=== PATIENT | female | born 1980 | race Caucasian/White ===

== ENCOUNTER 2020-07-13 11:29 | Outpatient (REF) | payer OTHER, SELFPAY | END 2020-07-13 11:30 | disposition home or self-care (01) | LOC: HO.SCI 11:29 | DX: Z13.89 Encounter for screening for other disorder (principal) ==

== ENCOUNTER 2020-07-21 15:31 | Outpatient (REF) | payer OTHER, SELFPAY ==
--- NOTE | 2020-07-21 15:31 | MR_ITS ---
EXAMINATION: MR BRAIN WITHOUT AND WITH CONTRAST CLINICAL INFORMATION: Epilepsy. COMPARISON: No relevant prior imaging. TECHNIQUE: Multiplanar MR imaging of the brain was performed without and with contrast. A total of 10 mL Gadavist was utilized for this examination. FINDINGS: There is a small focus of intrinsic T1 signal hyperintensity along the undersurface of the third ventricular floor best illustrated on sagittal image 12 of 24 series 3 with corresponding loss of signal on the fat-suppressed sequences. This finding therefore most likely represents a small lipoma. Otherwise there is no abnormal enhancement within the intracranial compartment on postcontrast images. No intracranial mass effect or midline shift. Lateral and third ventricles are proportionate to the subarachnoid spaces. No hydrocephalus. The cervicomedullary junction is normal. No acute bone marrow signal changes. Dedicated coronal oblique imaging through the temporal lobes reveal symmetric size, signal intensity, and morphological appearance of the hippocampal regions. No evidence of mesial temporal sclerosis. There are a few scattered nonspecific foci of T2 FLAIR signal hyperintensity within the periventricular white matter. No acute territorial infarct. Intracranial vascular flow voids are maintained. No mastoid middle ear effusion. No active paranasal sinus disease. Globes and orbits are symmetric. 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 Otherwise normal brain MRI.
== END 2020-07-21 15:32 | disposition home or self-care (01) ==
LOC: HO.MRI 15:31
PROVIDERS: Visit Provider Psychiatry & Neurology Neurology
DX: G40.909 Epilepsy, unspecified, not intractable, without status epilepticus (principal)
CPT/HCPCS: 70553

== ENCOUNTER 2025-09-26 12:19 | Emergency (ER) | payer OTHER, SELFPAY ==
[2025-09-26 12:25] VITALS: BP 169/75; PULSE 120; RESP 20; TEMP 35.5; O2SAT 96; BMI 41.0
--- NOTE | 2025-09-26 12:26 | ED.GENADULT ---
HPI - General Adult General Chief complaint: Upper Respiratory Symptoms Stated complaint: COVID LIKE SYMPTOMS Time Seen by Provider: 09/26/25 12:31 Source: patient Mode of arrival: ambulatory Limitations: no limitations History of Present Illness ED Provider: Alma Mejía PA-C HPI narrative: Patient is a 44 year old female presenting to the emergency department today with concerns for COVID-19 infection. Patient states that she works at [employer] and was just informed that 3 individuals at work have tested positive. Patient states that she took an / old home test that was positive but given the state of the test - she wanted confirmation. Patient states that if she is positive, she would like to be prescribed Paxlovid. Related Data Previous Rx's ?Medication ?Instructions ?Recorded nirmatrelvir 150 mg (10)-ritonavir See Rx Instructions PO .COMPLEX 09/26/25 100 mg (10) tablets in a dose pack #20 ea (Paxlovid) Allergies Allergy/AdvReac Type Severity Reaction Status Date / Time Sulfa (Sulfonamide Allergy Unknown Verified 09/26/25 12:30 Antibiotics) Review of Systems Constitutional: Constitutional: Reports as per HPI Eyes: Eyes: Reports as per HPI ENT: Reports as per HPI Cardiovascular: Cardiovascular: Reports as per HPI Respiratory: Respiratory: Reports as per HPI Gastrointestinal: Gastrointestinal: Reports as per HPI Genitourinary: Genitourinary: Reports as per HPI Musculoskeletal: Musculoskeletal: Reports as per HPI Integumentary/Breasts: Skin/Breast: Reports as per HPI Neurologic: Reports as per HPI Psychiatric: Psychiatric: Reports as per HPI Endocrine: Endocrine: Reports as per HPI Hematologic/Lymphatic: Hematologic/Lymphatic: Reports as per HPI Allergic/Immunologic: Allergic/Immunologic: Reports as per HPI [facility] Past Medical History Attestation statement: The following information was validated with the patient. Source: old records reviewed and nursing notes reviewed Social History Social History Advance Directives: No Advance Directives Information Provided: No Do you have a plan to hurt others: No Plan Physical Exam ED Vital Signs: Vital Signs - 24 hr 09/26/25 12:25 09/26/25 15:00 09/26/25 16:19 Temperature 95.9 F L 98.8 F 98.8 F Pulse Rate 120 H 118 H 118 H Respiratory Rate 20 18 18 Blood Pressure 169/75 H 129/84 129/84 Pulse Oximetry 96 97 97 Oxygen Delivery Method Room Air Room Air Room Air BMI result Body Mass Index 41.0 Const General: cooperative, alert and awake Orientation/consciousness: patient oriented x3 HENMT Other: Patient masked during all interactions Ears: hearing grossly normal bilaterally Mouth: no muffled voice Eyes General: appearance normal, both eyes and all related structures Periorbital: periorbital findings normal Resp Effort & Inspection: able to speak in complete sentences Neuro General: patient oriented x3, moves all extremities and CN's II-XI intact bilaterally Cognition (Neuro): normal cognition Extrem General: Yes full ROM Psych Appearance: grossly normal Mental Status: mental status grossly normal Attitude: cooperative Course Course Course Narrative: Rapid medical examination performed in triage by Alma Mejía PA-C: Patient is a 44 year old female presenting to the emergency department with concern for COVID-19 exposure. Patient states she was exposed to COVID-19 at [facility] and would now like to be tested and if positive, would like to be prescribed Paxlovid. Detailed physical exam and review of systems are deferred to the supervisor dental laboratory. Swabs ordered. Patient placed back in the waiting room pending room availability and results. Medical Decision Making Medical Decision Making MDM Narrative: Patient is a 44 year old female presenting to the emergency department today with concerns for COVID-19 infection. Patient's physical exam was as noted in the physical exam portion of this note. Patient's COVID-19 testing was positive. Patient's Influenza and RSV testing was negative. I explained all test results to the patient. I answered all questions asked by the patient. I explained to the patient that Paxlovid is no longer routinely covered by health insurance. Patient verbalized understanding and stated that she would like it prescribed anyway. Paxlovid prescribed to pharmacy of patient's choice. I explained to the patient that the CDC now recommends returning to work with COVID when fever free and recommends wearing a mask around others for 5 days. I stressed the importance of the patient taking her medication as directed (either prescribed or as the over the counter packaging recommends). I stressed the importance of the patient following up with her primary care provider. I stressed the importance of the patient returning to the emergency department immediately if she were to develop any dizziness, shortness of breath, difficulty breathing, chest pain, blurry vision, loss of vision, nausea, vomiting, abdominal pain, fever, chills, back pain, or any other complaints. Patient verbalized agreement and understanding with this treatment plan and discharge. Differential Diagnosis Differential Diagnoses: The differential diagnosis associated with the presentation includes COVID-19 exposure COVID-19 Admission/Observation Consideration of admission/observation: Escalation of care including admission/observation considered Patient would have been admitted to the hospital had her work up had any findings where hospital admission was appropriate and her clinical presentation warranted hospital admission. Lab Data [facility] Lab Attestation statement: I reviewed the patient's lab results. My interpretation of these results are in the [facility] Rationale portion of this note. Labs: Lab Results 09/26/25 Range/Units 14:59 Influenza Type A (PCR) NEGATIVE (Negative) Influenza Type B (PCR) NEGATIVE (Negative) RSV RNA Qual (PCR) NEGATIVE (Negative) SARS-CoV-2 RNA (RT-PCR) POSITIVE A (Negative) Prescription Management I considered prescription management with: Antiviral (patient prescribed paxlovid per her request.) Discharge Plan Discharge Clinical Impression: COVID-19 Patient Disposition: Home, Self-Care Instructions: COVID-19 (Coronavirus Disease 2019) (ED) Additional Instructions: Your COVID-19 testing is positive. IF you are prescribed home medications and/or you are taking over the counter medications at home - it is very important you continue to do so as prescribed / directed unless told otherwise by a healthcare provider. Follow up with your primary care provider. Do your best to stay well hydrated and rest. Return to the emergency department immediately if your symptoms worsen or if you develop any numbness, tingling, dizziness, shortness of breath, difficulty breathing, chest pain, blurry vision, loss of vision, nausea, vomiting, abdominal pain, fever, chills, back pain, or any other complaints. If you do not have a primary care provider - call any of the below numbers to establish and follow up with a primary care provider. [facility] Primary Care ([place]) [phone] [place] [address], [address] [facility] Primary Care ([address] [place]) [phone] [place] [address], [address] [facility], [address] [facility] Primary Care ([address] [place]) [phone] [place] [address], [address] [facility], [address] [facility] Primary Care ([place]) [phone] [place] [address], [address] [place] [facility], [address] [facility] Family Medicine [phone] [place] [address], [address] Please see the information below about our Patient Portal. If you are not yet enrolled in the [facility] Patient Portal, you will receive an enrollment email invitation following your visit to any [facility] care setting. You may also self-enroll in the Patient Portal by visiting our website: [email or web address] The following information is required to access the Patient Portal: - Your [facility] Medical Record Number - Your personal home email address (must match what is in your electronic medical record, Registration staff can assist with this) - Name - Date of Capabilities of the Patient Portal: - Message some providers - View upcoming appointments - Access your health summary, medical history, and visit history - View current conditions and allergies - View procedure and lab results - View your medications, including guidelines, side effects, and precautions - Complete pre-appointment questionnaires requested by your provider - Ready summary reports of your office visits and procedures To access the Patient Portal Mobile Bridget, follow these directions: - Search HomeRun in the Bridget Store or Google [employer] Store - Download the Bridget - Search for [facility] - Enter your login/password Prescriptions: New Paxlovid 150 mg (10)- 100 mg (10) tablets,dose pack See Rx Instructions .ROUTE .COMPLEX Qty: 20 0RF Rx Instructions: take ONE 150 mg tablet of nirmatrelvir with ONE 100 mg tablet of ritonavir twice daily for 5 days Stand Alone Forms: Work/School Release Interventions: ED Discharge Assessment Last Done: 09/26/25 16:19 Discharge Date/Time: 09/26/25 16:19 Print Language: Slovak
[2025-09-26 15:00] VITALS: BP 129/84; PULSE 118; RESP 18; TEMP 37.1; O2SAT 97
--- NOTE | 2025-09-26 15:17 | MHC.EDTECH ---
Lin Guadarrama notified of pt [facility]
[2025-09-26 15:49] LABS: Resp Syncy Virus RNA Qual PCR NEGATIVE (Negative); SARS COV2 PCR INHOUSE POSITIVE (Negative)
--- OUTSIDE RECORDS SUMMARY | 2025-09-26 16:12 | XMS_ITS | Encounter Summary ---
Author Organization [facility] Address [address] [place] [address] Care Team Providers Care Geophysical Party Chief Name Role Phone Anjel Harding MD Primary Care Provider Reason for Visit * Reason Onset Date Comments Med Refill 08/14/2024 Encounter Details Date Type Department Care Team (Late st Contact Info) Description 08/14/2024 Nurse Triage Adult Medicine [address] [phone] Anjel Harding MD [address] [place] [id number] Social History Tobacco Use Types Packs/Day Years Used Date Smoking Tobacco: Never Smokeless Tobacco: Never Alcohol Use Standard Drinks/Week Comments No 0 (1 standard drink = 0.6 oz pur e alcohol) Comments Unknown Sex and Gender Information Value Date Recorded Sex Assigned at Not on file Legal Sex Female 11:04 AM EDT Gender Identity Not on file Sexual Orientation Not on file documented as of this encounter Progress Notes * Debby Prieto RN - 09/02/2024 12:34 PM EST Spoke with pt. She is all set with her letter but states her pharmacy informed her she will need a rx for her gabapentin and fenofibrate * Debby Prieto RN - 09/01/2024 1:14 PM EST Called number listed no answer, left message to call the office at [phone] * Diana Barrett RN - 08/21/2024 12:20 PM EST Call to pt. Left message for pt to call triage Last PE was in november documented in this encounter Plan of Treatment Upcoming Encounters Date Type Department Care Team (Late st Contact Info) Description 10/21/2025 9:00 AM EST Appointment Radiology Department - [address] [phone] documented as of this encounter Visit Diagnoses Not on filedocumented in this encounter Care Teams Geophysical Party Chief Relationship Specialty Start Date End Date Anjel Harding MD [address] [place] [address] PCP - General 05/04/24 documented as of this encounter
--- OUTSIDE RECORDS SUMMARY | 2025-09-26 16:12 | XMS_ITS | Clinical Summary ---
Author Organization Patient Business Ser [facility] Address [address] [place] [address] Care Team Providers Care Bakery Helper Name Role Phone Anjel Harding MD Primary Care Provider Allergies Active Allergy Reactions Criticality Noted Date Comments Adhesive Tape-Silicones Rash 11/26/2024 Cinnamon Analogues Itching 04/27/2024 Clindamycin Rash 12/14/2019 Sulfa (Sulfonamide Antibiotics) Anaphylaxis High Medications ASCORBIC ACID, VITAMIN C, ORAL Take by mouth. Active coenzyme Q-10 10 mg capsule Take 40 capsules (400 mg total) by mouth. Active ginkgo biloba leaf extract 60 mg capsule Take 60 mg by mouth. Active UNABLE TO FIND Vitamin d OTC A ctive vit no.124/iron/fo lic ( VITAMIN ORAL) Take 1 tablet by mouth 1 (one) time each day. Active folic acid (FOLVITE) 1 mg tablet TAKE ONE TABLET BY MOUTH EVERY DAY 90 tablet 1 03/17/20 25 Active diclofenac (VOLTAREN) 50 mg EC tablet Take 1 tablet (50 mg total) by mouth 2 (two) times a day if needed (alvarez). Do not crush, chew, or split. 28 tablet 1 03/26/20 25 Active predniSONE (DELTASONE) 20 mg tablet Take 60 mg PO daily for 3 days, then take 40 mg PO daily for 3 days, then 20 mg PO daily for 3 days, then stop 18 tablet 03/26/20 25 Active gabapentin (NEURONTIN) 600 mg tablet TAKE ONE TABLET BY MOUTH THREE TIMES A DAY 270 tablet 1 04/21/20 25 Active lidocaine (LIDODERM) 5 % patch APPLY 1 PATCH TOPICALLY TO PAINFUL AREA 12 HOURS PER DAY NEEDED FOR MODERATE PAIN. REMOVE PATCH FOR 12 HOURS. 30 patch 2 06/22/20 25 Active Apri 0.15-0.03 mg per tablet TAKE ONE TABLET BY MOUTH EVERY DAY 28 tablet 09/15/20 25 Active Apri 0.15-0.03 mg per tablet TAKE ONE TABLET BY MOUTH EVERY DAY 28 tablet 07/20/20 25 025 Discontinued Active Problems Problem Noted Date Diagnosed Date Secondhand smoke exposure 10/29/2024 Snoring 10/29/2024 Shortness of breath 10/29/2024 Obesity (BMI 30-39.9) 07/03/2024 Mixed hyperlipidemia 07/03/2024 Elevated serum creatinine 07/03/2024 Hypertriglyceridemia 12/18/2023 PCOS (polycystic ovarian syndrome) 08/19/2019 Overview (07/10/2024): [facility] Endo- Dr Kumarich Epilepsy 08/19/2019 Overview (07/10/2024): Since 2.5yrs of age Resolved Problems Problem Noted Date Diagnosed Date Resolved Date MS (multiple sclerosis) 01/20/202503/01 Immunizations Immunization Administration Dates Next Due Hepatitis B (Jsnzrvp-B-Hjctm , Recombivax HB-Adult) 19yo and older 11/26/2024,10/29/2024 Influenza Quadravalent, MDCK , 0.5ml, preservative free (Flucelvax) 6mo and older 08/19/2019 Influenza Quadravalent, MDCK , 0.5ml, with preservative (Flucelvax) 6mo and older 09/19/2020 [facility] SARS-CoV-2 COVID-19, mRNA, LNP-S, preservative free 02/22/2022 [facility] SARS-CoV-2 COVID-19, mRNA, LNP-S, preservative free 08/16/2021,02/11/2021,01/21/2021 Tdap Tetanus diptheria acell ular pertussis (Boostrix; Adacel) 7yo and older 04/25/2023,08/28/2012 Surgical History Surgery Date Site/Laterality Comments OTHER SURGICAL HISTORY PROCEDURE: [place] HEARING TEST 6 MOS PRIOR TO EAR TUBE INSERTION Medical History Medical History Date Comments Epilepsy (CMS/HCC V24, CMS/HCC V28) 08/19/2019 DX:Epilepsy (HCC) PCOS (polycystic ovarian syndrome) 08/19/2019 DX:PCOS (polycystic ovarian syndrome); COMMENT: [facility] Blue- Dr Garcia Family History Medical History Relation Name Comments Diabetes Aunt Bipolar disorder Father Hypertension Mother Other: RSV Mother Breast cancer Neg Hx Relation Name Status Comments Aunt Father Alive Mother Alive Social History Tobacco Use Types Packs/Day Years Used Date Smoking Tobacco: Never Smokeless Tobacco: Never Tobacco Cessation:Counseling Given: Not Answered Alcohol Use Standard Drinks/Week Comments No 0 (1 standard drink = 0.6 oz pur e alcohol) Housing Instability Answer Date Recorde d Are you worried that in the next 2 months you may not have stable housing? Patient declined 11/25/2024 Food Access & Nutrition Answer Date Rec orded Do you have access to a vari ety of food including fruits and vegetables? Patient declined 11/25/2024 Access to Healthcare Answer Date Record ed Within the last 3 months, ho w many times did you visit the emergency department for your medical care? 0 11/25/2024 Health Literacy Answer Date Recorded How often do you need to hav e someone help you when you read instructions, pamphlets, or other written material from your doctor or pharmacy? Patient declined 11/25/2024 Caregiver: How often do you need to have someone help you when you read instructions, pamphlets, or other written material from your doctor or pharmacy? Not on file 025 Financial Risk Answer Date Recorded How hard is it for you to pa y for the very basics like food, housing, medical care, and air conditioning / heating? Patient declined 11/25/2024 Transportation Answer Date Recorded Has the lack of transportati on kept you from meetings, work, or from getting things needed for daily living? Patient declined 11/25/2024 Has the lack of transportati on kept you from medical appointments or from getting medications? Patient declined 11/25/2024 Social Isolation Answer Date Recorded How often do you feel lonely or isolated from those around you? Patient declined 11/25/2024 Food Risk Answer Date Recorded Within the past 12 months we worried whether our food would run out before we got money to buy more. Patient declined 025 Within the past 12 months th e food we bought just didn't last and we didn't have money to get more. Patient declined 11/01 Dependent Care Answer Date Recorded Do you need help finding or paying for care for your loved ones. For example, child protection specialist or elderly care for an older adult? Patient declined 11/25/2024 Education Answer Date Recorded Do you think completing more education or training, like finishing a GED, going to college, or learning a trade, would be helpful for you? Yes 11/25/2024 Employment and Income Answer Date Recor ded During the last four weeks, have you been actively looking for work? Patient declined 11/25/2024 Living Situation Answer Date Recorded What is your living situation? Unrecognized valu e 11/25/2024 Comments No Sex and Gender Information Value Date Recorded Sex Assigned at Not on file Legal Sex Female 11:04 AM EDT Gender Identity Not on file Sexual Orientation Not on file Obstetrics History Para Term AB IAB SAB Ectopic Multiple Livin g Live Births 0 0 0 0 Last Filed Vital Signs Vital Sign Reading Time Taken Comments Blood Pressure 120/68 03/26/2025 2:02 PM EDT Pulse 64 03/26/2025 2:02 PM EDT Temperature 36.2 C (97.1 F) 03/26/2025 2:02 PM EDT Respiratory Rate 16 03/26/2025 2:02 PM EDT Oxygen Saturation 99% 03/11/2025 7:53 AM EDT Inhaled Oxygen Concentration - - Weight 103 kg (226 lb) 03/26/2025 2:02 PM EDT Height 162.6 cm (5' 4 ) 03/26/2025 2:02 PM EDT Body Mass Index 38.79 03/26/2025 2:02 PM EDT Plan of Treatment Upcoming Encounters Date Type Department Care Team (Late st Contact Info) Description 10/21/2025 9:00 AM EST Appointment Radiology Department [address] [phone] Health Maintenance Due Date Last Done Comments Cervical Cancer Screening: Pap Smear 2001 HPV Vaccines (1 - 3-dose SCDM series) 2007 HIV Screening 07/17/2022 Hepatitis C Screening 07/17/2022 Hepatitis B Vaccines (3 of 3 - 19+ 3-dose series) 04/28/2025 11/26/2024, 10/29/2024 COVID-19 Vaccine ( - 2024- season) 2025 08/16/2023, 12/13/2022, 02/22/2022, Additional history exists Influenza Vaccine (#1) 2025 , 07/29/2023, 08/01/2021, Additional history exists Social Influencers of Health Screening 11/25/2025 11/25/2024 Breast Cancer Screening 04/20/2027 04/20/20, 04/03/2025, 02/10/2022, Additional history exists Cholesterol Screening (Lipid Panel) 03/11/2030 03/11/2025, 10/29/2024, 07/06/2024 DTaP,Tdap,and Td Vaccines (3 - Td or Tdap) 04/25/2033 04/25/2023, 08/28/2012 RSV Immunization Adult Patients (1 - 1-dose 75+ series) 2055 Depression Screening Completed 11/25/2024 HIB Vaccines Aged Out No longer eligi ble based on patient's age to complete this topic Hepatitis A Vaccines Aged Out No long er eligible based on patient's age to complete this topic IPV Vaccines Aged Out No longer eligi ble based on patient's age to complete this topic MMR Vaccines Aged Out No longer eligi ble based on patient's age to complete this topic Meningococcal ACWY Vaccine Aged Out N o longer eligible based on patient's age to complete this topic Meningococcal B Vaccine Aged Out No l onger eligible based on patient's age to complete this topic Pneumococcal Vaccine: Pediatrics (0 to 5 Years) and At-Risk Patients (6 to 49 Years) Aged Out No longer eligible based on patient's age to complete this topic RSV Immunization Patients Under 20 months Aged Out No longer eligible based on patient's age to complete this topic Varicella Vaccines Aged Out No longer eligible based on patient's age to complete this topic Procedures Procedure Name Priority Date/Time Associated Diagnosis Comments EXTERNAL NEUROLOGY REPORT 08/31/2025 MG MAMMO DIGITAL DIAGNOSTIC W EDGAR RIGHT Routine 04/20/2025 10:54 AM EDT Abnormal mammogram LIPID PANEL WITH REFLEX TO DIRECT LDL Routine 03/11/2025 8:42 AM EDT Hyperlipidemia, unspecified hyperlipidemia type from Last 3 Months or Most Recently Relevant to Health Maintenance Results * External Neurology Report (08/31/2025) us Provider [facility] NEUROLOGY ORDERABLES Fin al Result * MG Mammo Digital Diagnostic w Edgar Right (04/20/2025 10:54 AM EDT) Anatomical Region Laterality Modality Breast Right Mammography 04/20/2025 10:5 9 AM EDT Impressions 04/20/2025 11:48 AM EDT Probably benign. The focal asymmetry likely represents a slip of the pectoralis muscle. As a precaution, six-month follow-up cc view of the right breast is recommended. Option of breast breast MRI was also discussed with the patient in person. BI-RADS CATEGORY: 3 - PROBABLY BENIGN RECOMMENDATION: Short Interval Follow-up is recommended for the right breast in 6 months. Mammo Location: [facility]. [facility], [address] [place] [id number] -------- FINAL REPORT -------- Dictated By: Love Mcdonald Dictated Date: 04/20/2025 10:59 ET Assigned Physician: Love Mcdonald Reviewed and Electronically Signed By: Love Mcdonald Signed Date: 04/20/2025 11:48 ET Workstation ID: [id number] Transcribed By: Self Edit Transcribed Date: 04/20/2025 11:46 ET Narrative 04/20/2025 11:48 AM EDT CLINICAL: 44 years old, Female, indeterminate cc view slightly medial to the nipple posterior depth asymmetry on screening mammogram of 04/03/2025. COMPARISON: Mammograms dating back to 01/28/2021. FINDINGS: MAMMOGRAPHY TECHNIQUE: Spot compression cc view of the right breast was obtained digitally with 3-D mammogram (digital breast tomosynthesis). The indeterminate posterior depth asymmetry seen on the screening study is not identified on the spot compression view. This may be due to the asymmetry not being included on the image due to its posterior location. Only pectoralis muscle was identified in this location on the spot compression view. BREAST DENSITY: B - There are scattered areas of fibroglandular density. ULTRASOUND TECHNIQUE: Ultrasound evaluation of the right breast was performed from the 12 to 6 o'clock position. There is no evidence of morphologically suspicious mass. There is no cyst or solid mass. Procedure Note Love Mcdonald MD - 04/20/2025 CLINICAL: 44 years old, Female, indeterminate cc view slightly medial tothe nipple posterior depth asymmetry on screening mammogram of04/03/2025. COMPARISON: Mammograms dating back to 01/28/2021. FINDINGS: MAMMOGRAPHY TECHNIQUE: Spot compression cc view of the right breast was obtaineddigitally with 3-D mammogram (digital breast tomosynthesis). The indeterminate posterior depth asymmetry seen on the screening study isnot identified on the spot compression view. This may be due to theasymmetry not being included on the image due to its posterior location.Only pectoralis muscle was identified in this location on the spotcompression view. BREAST DENSITY: B - There are scattered areas of fibroglandular density. ULTRASOUND TECHNIQUE: Ultrasound evaluation of the right breast was performed fromthe 12 to 6 o'clock position. There is no evidence of morphologically suspicious mass. There is no cystor solid mass. IMPRESSION: Probably benign. The focal asymmetry likely represents a slip of thepectoralis muscle. As a precaution, six-month follow-up cc view of theright breast is recommended. Option of breast breast MRI was alsodiscussed with the patient in person. BI-RADS CATEGORY: 3 - PROBABLY BENIGN RECOMMENDATION: Short Interval Follow-up is recommended for the right breast in 6months. Mammo Location: [facility]. [facility], [address] [place] [id number] -------- FINAL REPORT -------- Dictated By: Love Mcdonald Dictated Date: 04/20/2025 10:59 ET Assigned Physician: Love Mcdonald Reviewed and Electronically Signed By: Love Mcdonald Signed Date: 04/20/2025 11:48 ET Workstation ID: [id number] Transcribed By: Self Edit Transcribed Date: 04/20/2025 11:46 ET Anjel Harding MD IMG BI PROCEDURES Final Res ult * (ABNORMAL) Lipid panel with reflex to direct LDL (03/11/2025 8:42 AM EDT) Cholesterol 218(H) 0 - 200 mg/dL LAB CHEMISTRY METHOD 03/11/2025 11:30 AM EDT [facility] Triglycerides 241(H) 0 - 150 mg/dL LAB CHEMISTRY METHOD 03/11/2025 11:30 AM EDT [facility] HDL 54 >=40 mg/dL LAB CHEMISTRY METHOD 03/11/2025 11:30 AM EDT [facility] LDL Calculated 116(H) 0 - 100 mg/dL LAB CHEMISTRY METHOD 03/11/2025 11:30 AM EDT [facility] VLDL Cholesterol Dante 48.2 mg/dL LAB CHEMISTRY METHOD 03/11/2025 11:30 AM EDT [facility] Non HDL Chol. (LDL+VLDL) 164(H) <145 mg/dL LAB CHEMISTRY METHOD 03/11/2025 11:30 AM EDT [facility] Chol/HDL Ratio 4.0 0.0 - 4.4 LAB CHEMISTRY METHOD 03/11/2025 11:30 AM EDT [facility] Blood Venous blood specimen / Unknown Venipuncture / Unknown 03/11/2025 8:42 AM EDT 03/11/2025 8:42 AM EDT Anjel Harding MD LAB BLOOD ORDERABLES Final Result [facility] [address] [place] [address], [place] [phone] from Last 3 Months or Most Recently Relevant to Health Maintenance Insurance [employer] Care Teams Bakery Helper Relationship Specialty Start Date End Date Anjel Harding MD [address] [facility] [place] [id number] PCP - General 05/04/24
[2025-09-26 16:19] VITALS: BP 129/84; PULSE 118; RESP 18; TEMP 37.1; O2SAT 97
== END 2025-09-26 16:19 | disposition home or self-care (01) ==
PROVIDERS: Physician Assistant Medical; Emergency Provider Emergency Medicine; PCP Internal Medicine
DX: U07.1 COVID-19 (principal)
CPT/HCPCS: 87637; 99283